=== PATIENT | female | born 1995 ===

== ENCOUNTER 2018-03-17 16:21 | Emergency (ER) | payer MEDICAID ==
[~2018-03-17] VITALS: Ht 152.4 cm; Wt 102.3 kg
[2018-03-17 16:23] VITALS: Ht 152.4 cm; Wt 102.3 kg
[2018-03-17] MEDS ORDERED: EFFEXOR XR75 MG PO (16:28)
[2018-03-17] MEDS ORDERED: MAXALT10 MG PO (16:28)
[2018-03-17] MEDS ORDERED: PHENERGAN25 M1 PO (16:28)
[2018-03-17] MEDS ORDERED: HCTZ25 MG PO (16:29)
[2018-03-17] MEDS ORDERED: XANAX0.25 MG PO (16:29)
[2018-03-17] MEDS ORDERED: PRINIVIL20 MG PO (16:29)
[2018-03-17 17:03] LABS: APPEARANCE HAZY (CLEAR); COLOR YELLOW (YELLOW)
[2018-03-17 17:04] LABS: BACTERIA FEW /hpf (NONE SEEN); BILIRUBIN NEGATIVE (NEGATIVE); GLUCOSE NEGATIVE (NEGATIVE); KETONE NEGATIVE (NEGATIVE); NITRITE NEGATIVE (NEGATIVE); PROTEIN NEGATIVE (NEGATIVE); RED CELLS - URINE 0-5 /hpf (0-5); UROBILINOGEN NORMAL (NORMAL); WHITE CELLS - URINE NSEEN /hpf (0-5)
[2018-03-17 17:31] LABS: BASOPHILS 0.4 % (0-2); EOSINOPHILS 3.4 % (0-7); HEMATOCRIT 41.7 % (36.0-48.0); HEMOGLOBIN 14.3 g/dL (12-16); IMMATURE GRANULOCYTES 0.2 % (0-5); MCH 31.3 pg (26.0-34.0); MCHC 34.3 g/dL (31.0-37.0); MCV 91.2 fL (80.0-100.0); PLATELET COUNT 260 10x3/uL (130-400); RBC 4.57 10x6/uL (4.00-5.40); RDW 12.7 % (11.5-14.5); WBC 11.4 10x3/uL (4.8-10.8)
[2018-03-17 17:40] LABS: ALBUMIN 3.9 g/dL (3.4-5.0); ALKALINE PHOSPHATASE 79 U/L (46-116); ALT (SGPT) 31 U/L (10-68); BILIRUBIN - TOTAL 0.33 mg/dL (0.2-1.3); CALC OSMOLALITY 278 mosm/kg (275-300); CALCIUM 9.2 mg/dL (8.5-10.1); CARBON DIOXIDE 25.9 mmol/L (21.0-32.0); CHLORIDE - SERUM 101 mmol/L (98-107); CREATININE - SERUM 0.9 mg/dL (0.6-1.3); GLUCOSE 102 mg/dL (74-106); POTASSIUM - SERUM 3.6 mmol/L (3.5-5.1); PROTEIN - SERUM 8.3 g/dL (6.4-8.2); SODIUM 138 mmol/L (136-145); UREA NITROGEN 22 mg/dL (7-18); eGFR NON AFRICAN AMERICAN 83 mL/min (90-120)
[2018-03-17 17:53] LABS: CKMB 0.9 U/L (0.0-3.6); CREATINE KINASE 137 UL (21-215); TROPONIN-I < 0.017 ng/mL (0.000-0.060)
[2018-03-17] MEDS ORDERED: ULTRAM50 MG PO (19:21)
[2018-03-17 20:05] VITALS: BP 146/102
== END 2018-03-17 20:06 | disposition home or self-care (01) ==
LOC: D.ER 16:21
PROVIDERS: Family Medicine
DX: N93.9 Abnormal uterine and vaginal bleeding, unspecified (principal); R10.9 Unspecified abdominal pain; F17.200 Nicotine dependence, unspecified, uncomplicated